=== PATIENT | female | born 1960 | race Caucasian/White ===

== ENCOUNTER 2025-08-19 14:48 | Outpatient (CLI) | payer BC, OTHER, SELFPAY ==
--- NOTE | ~2025-08-19 | XR_ITS ---
XR lumbar spine min 4V Indication: Spondylolisthesis, site unspecified Comparison: None Findings: Osteopenia. Levoconvex scoliosis. Moderate loss of vertebral height. Grade 1 anterolisthesis of L4 on L5. No acute fracture. No subluxation with flexion and extension. Severe loss of disc height at L4-5. Soft tissues unremarkable Impression: No acute abnormality. Reviewed, dictated and finalized at location P. BASE ADMINISTRATOR Impression: No acute abnormality.
== END 2025-08-19 14:49 | disposition home or self-care (01) ==
LOC: MICIMG 15:00
PROVIDERS: PCP Family Medicine; Visit Provider Physician Assistant
DX: M43.10 Spondylolisthesis, site unspecified (principal)
CPT/HCPCS: 72110